=== PATIENT | female | born 1970 | race African-American/Black ===

== ENCOUNTER 2018-11-09 05:24 | Inpatient (IN) ==
[2018-11-06 12:34] LABS: Apearance,Urine CLEAR (Clear); Bacteria,Urine Occasional /HPF (Few); Bilirubin,Urine Negative (Negative); Blood, Urine Negative (Negative); Glucose,Urine (UA) Negative (Negative); Ketones,Urine Negative (Negative); Mucus,Urine Occasional /LPF (Occasional); Nitrite,Urine Negative (Negative); Protein,Urine Negative; RBC,Urine <1 /HPF (0-4); Squamous Epithelial Cell,Urine Occasional /HPF (0-10); Urine Color Yellow (Yellow); Urine Specific Gravity 1.012 (1.001-1.035)
[2018-11-06 12:40] LABS: Basophils % 0.4 % (0.0-0.8); Eosinophils # 0.1 10*3/uL (0.0-0.87); Eosinophils % 1.2 % (0.00-10.9); Hematocrit 42.2 VOL% (35.7-47.0); Hemoglobin 13.8 GM/DL (12.0-16.0); Immature Granulocytes % 0.1 %; Immature Granulocytes Absolute 0.01 #; Lymphocytes # 1.8 10*3/uL (1.4-4.0); Lymphocytes % 25.9 % (21.3-54.2); Mean Corpuscular HGB Conc 32.7 GM/DL (32-36); Mean Corpuscular Volume 93.6 FL (87-102); Mean Platelet Volume 9.7 FL (9.6-12.0); Monocytes % 10.2 % (1.7-12.7); Neutrophils % 62.2 % (38.7-73.9); Platelet Count 283 T/CUMM (130-400); Red Blood Count 4.51 MC/CUMM (3.8-5.5); Red Cell Distribution Width 11.9 % (9.3-17.3); White Blood Count 6.9 T/CUMM (4-12)
[2018-11-06 13:17] LABS: Albumin 3.6 G/DL (3.4-5.0); Bilirubin,Total 0.4 MG/DL (0.2-1.0); Calcium 8.7 MG/DL (8.5-10.1); Osmolality,Calculated 276.4 MOS/KG (273-304); Risk Ratio 2.41; Total Protein 7.5 G/DL (6.4-8.3); VLDL CHOLESTEROL 13.4 MG/DL
[2018-11-06 14:43] LABS: HIV Antigen/Antibody Result Nonreactive (Nonreactive)
[2018-11-09] MEDS ORDERED: FAMOTIDINE 20 MG TABLET PO ONE (06:00)
[2018-11-09] MEDS ORDERED: ACETAMINOPHEN 500 MG TABLET PO ONE (06:00)
[2018-11-09] MEDS ORDERED: FAMOTIDINE 20 MG TABLET ONE (06:30)
[2018-11-09] MEDS ORDERED: ACETAMINOPHEN 500 MG TABLET ONE (06:30)
[2018-11-09] MEDS ORDERED: LACTATED RINGERS 1,000 ML IV SCH (06:30)
[2018-11-09] MEDS ORDERED: MICROFIBRILLAR COLLAGEN POWDER 1 GM CAN TOP ONE (06:40)
[2018-11-09] MEDS ORDERED: AMPICILLIN/SULBACTAM 3,000 MG in SODIUM CHLORIDE 0.9% 100 ML IV ONE (07:00)
[2018-11-09] MEDS ORDERED: ACETAMINOPHEN 325 MG TABLET PO PRN (10:15)
[2018-11-09] MEDS ORDERED: ONDANSETRON 4 MG/2 ML VIAL IV PRN ×2 (10:15→11:06)
[2018-11-09] MEDS ORDERED: BENZOCAINE/MENTHOL LOZENGE 18/BOX PO PRN (10:15)
[2018-11-09] MEDS ORDERED: BISACODYL 10 MG SUPP RECTAL PRN (10:15)
[2018-11-09] MEDS ORDERED: HYDROmorphone 2 MG/1 ML VIAL IV PRN (10:16)
[2018-11-09] MEDS ORDERED: EPINEPHrine 1 MG/ML VIAL ONE (10:35)
[2018-11-09] MEDS ORDERED: BUPIVACAINE 0.5% 50 ML VIAL ONE (10:35)
[2018-11-09] MEDS ORDERED: DEXAMETHASONE 4 MG/1 ML VIAL ONE ×3 (10:35→11:03)
[2018-11-09 10:58] LABS: Apearance,Urine CLEAR (Clear); Bilirubin,Urine Negative (Negative); Blood, Urine Moderate mg/dL (Negative); Glucose,Urine (UA) Negative (Negative); Ketones,Urine 5 mg/dL (Negative); Nitrite,Urine Negative (Negative); Protein,Urine Negative; RBC,Urine 53 /HPF (0-4); Urine Color Colorless (Yellow); Urine Specific Gravity 1.011 (1.001-1.035); Urine Urobilinogen < 2.0 EU/DL (0.2-1.0); WBC,Urine <1 /HPF (0-6)
[2018-11-09] MEDS ORDERED: LIDOCAINE 2% 5 ML VIAL ONE (11:02)
[2018-11-09] MEDS ORDERED: PROPOFOL 200 MG/20 ML VIAL IV ONE (11:02)
[2018-11-09] MEDS ORDERED: fentaNYL 100 MCG/2 ML VIAL ONE (11:02)
[2018-11-09] MEDS ORDERED: SEVOFLURANE 1 UNIT/15 MINUTE INH ONE (11:02)
[2018-11-09] MEDS ORDERED: MIDAZOLAM 2 MG/2 ML VIAL ONE (11:03)
[2018-11-09] MEDS ORDERED: GLYCOPYRROLATE 0.4 MG/2 ML VIAL ONE (11:03)
[2018-11-09] MEDS ORDERED: ONDANSETRON 4 MG/2 ML VIAL ONE ×2 (11:03→11:07)
[2018-11-09] MEDS ORDERED: KETOROLAC 30 MG/1 ML VIAL ONE (11:03)
[2018-11-09] MEDS ORDERED: NEOSTIGMINE 10 MG/10 ML VIAL ONE (11:04)
[2018-11-09] MEDS ORDERED: ROCURONIUM 100 MG/10 ML VIAL IV ONE (11:04)
[2018-11-09] MEDS ORDERED: LACTATED RINGERS 2,000 ML IV ONE (11:04)
[2018-11-09] MEDS ORDERED: HYDROmorphone 2 MG/1 ML VIAL ONE (11:07)
[2018-11-09] MEDS: HYDROmorphone 2 MG/1 ML VIAL IV PRN ×3 (11:10→11:20)
[2018-11-09] MEDS: LACTATED RINGERS 1,000 ML IV SCH ×2 (12:35→20:55)
[2018-11-09] MEDS ORDERED: MEPERIDINE 25 MG/1 ML VIAL ONE (13:31)
[2018-11-09] MEDS: MEPERIDINE 25 MG/1 ML VIAL IV PRN ×3 (13:38→22:22)
[2018-11-09] MEDS: ceFAZolin 2,000 MG in PREMIX 1 EACH IV SCH ×2 (16:05→23:47)
[2018-11-09] MEDS: DOCUSATE SODIUM 100 MG CAPSULE PO PRN (20:55)
[2018-11-10] MEDS: IBUPROFEN 800 MG TABLET PO PRN ×2 (04:24→20:13)
[2018-11-10 05:16] LABS: Basophils % 0.2 % (0.0-0.8); Hemoglobin 10.8 GM/DL (12.0-16.0); Immature Granulocytes % 0.6 %; Immature Granulocytes Absolute 0.07 #; Lymphocytes # 1.2 10*3/uL (1.4-4.0); Lymphocytes % 9.9 % (21.3-54.2); Mean Corpuscular HGB Conc 32.7 GM/DL (32-36); Mean Corpuscular Volume 92.7 FL (87-102); Mean Platelet Volume 10.4 FL (9.6-12.0); Monocytes % 15.1 % (1.7-12.7); Neutrophils % 74.2 % (38.7-73.9); Platelet Count 253 T/CUMM (130-400); Red Blood Count 3.56 MC/CUMM (3.8-5.5); Red Cell Distribution Width 11.8 % (9.3-17.3)
[2018-11-10] MEDS: SIMETHICONE CHEW 80 MG TABLET PO PRN (09:56)
[2018-11-10] MEDS: DOCUSATE SODIUM 100 MG CAPSULE PO PRN ×2 (09:56→21:26)
[2018-11-10] MEDS: MAGNESIUM HYDROXIDE SUSP 30 ML UDCUP PO PRN ×2 (09:56→21:26)
[2018-11-10] MEDS: ENOXAPARIN 40 MG/0.4 ML SYRINGE SUBCUT SCH (09:57)
[2018-11-11] MEDS ORDERED: METOCLOPRAMIDE 10 MG TABLET PO PRN (07:34)
[2018-11-11] MEDS: SIMETHICONE CHEW 80 MG TABLET PO PRN (08:24)
[2018-11-11] MEDS: MAGNESIUM HYDROXIDE SUSP 30 ML UDCUP PO PRN (08:24)
[2018-11-11] MEDS: ENOXAPARIN 40 MG/0.4 ML SYRINGE SUBCUT SCH (08:24)
[2018-11-11] MEDS: DOCUSATE SODIUM 100 MG CAPSULE PO PRN (08:24)
[2018-11-11] MEDS: IBUPROFEN 800 MG TABLET PO PRN ×2 (08:34→15:12)
[2018-11-11] MEDS ORDERED: MAGNESIUM CITRATE 300 ML BOTTLE PO ONE (14:40)
[2018-11-12] MEDS: DOCUSATE SODIUM 100 MG CAPSULE PO PRN (09:40)
[2018-11-12] MEDS: ENOXAPARIN 40 MG/0.4 ML SYRINGE SUBCUT SCH (09:41)
[2018-11-12] MEDS: IBUPROFEN 800 MG TABLET PO PRN (12:21)
[2018-11-12 14:16] VITALS: BP 145/83
== END 2018-11-12 13:30 | disposition home or self-care (01) | DRG 743 ==
LOC: N.SDSINP 05:24 → N.OB 11:27
PROVIDERS: ADMIT Obstetrics & Gynecology; ATTEND Obstetrics & Gynecology